=== PATIENT | male | born 1985 | race Caucasian/White ===

== ENCOUNTER 2025-06-14 13:14 | Emergency (ER) | payer MEDICAID ==
[~2025-06-14] VITALS: Ht 177.8 cm; Wt 82.0 kg
[2025-06-14 13:19] VITALS: O2SAT 94
[2025-06-14 13:45] VITALS: BP 117/60; PULSE 103; RESP 18; TEMP 37.2; O2SAT 98
[2025-06-27] MEDS ORDERED: METF-1150 MT (00:33)
[2025-06-27] MEDS ORDERED: FOLI0.4T6 MT (01:19)
[2025-06-27] MEDS ORDERED: GABA-529 MT (01:19)
[2025-06-27] MEDS ORDERED: SEMA2PEN (01:19)
[2025-06-28] MEDS ORDERED: PROT40 MT (18:38)
[2025-06-28] MEDS ORDERED: COR3 MT (18:38)
[2025-06-28] MEDS ORDERED: METF-817 MT (18:38)
[2025-06-28] MEDS ORDERED: GABA-529 MT (18:38)
== END 2025-06-14 15:35 | disposition left against medical advice (07) ==
LOC: ER 13:14
DX: R20.0 Anesthesia of skin (principal); R53.1 Weakness
CPT/HCPCS: 93005; 99281; 99283

== ENCOUNTER 2025-06-30 15:43 | Emergency (ER) | payer MEDICAID ==
[~2025-06-30] VITALS: Ht 172.7 cm; Wt 91.0 kg
[~2025-06-30 15:43] MED LIST: COR3 MT; FOLI0.4T6 MT; GABA-529 MT; METF-1150 MT; METF-817 MT; PROT40 MT; SEMA2PEN
[2025-06-30 15:50] VITALS: O2SAT 99
[2025-06-30] MEDS ORDERED: PANTOPRAZOLE SODIUM 40 MG/VIAL IV ONE (16:15)
[2025-06-30 16:40] LABS: BASOPHILS % 0.6 % (0.0-2.0); EOSINOPHILS % 2.4 % (0.0-5.0); HEMATOCRIT. 47.6 % (42.0-52.0); HEMOGLOBIN. 16.6 g/dL (14.0-18.0); LYMPHOCYTES % 24.4 % (20.0-50.0); MEAN PLATELET VOLUME 9.4 fl (7.4-10.4); MONOCYTES % 10.0 % (2.0-8.0); NEUTROPHILS % 62.6 % (40.0-76.0); PLATELET 76 x1000/uL (130-400); RED BLOOD CELL COUNT 5.15 mill/uL (4.7-6.1); RED CELL DISTRIBUTION WIDTH 13.3 % (11.6-14.6)
[2025-06-30 16:54] LABS: CREATININE 0.7 mg/dL (0.6-1.3); INR 1.2
[2025-06-30 16:55] LABS: UREA NITROGEN BLOOD < 5 mg/dL (9-23)
[2025-06-30 16:56] LABS: ASPARTATE AMINOTRANSFERASE 69 IU/L (<34); BILIRUBIN DIRECT 0.4 mg/dL (<=3.0)
[2025-06-30 16:57] LABS: BILIRUBIN TOTAL 1.3 mg/dL (0.1-1.0); PROTEIN TOTAL 7.8 g/dL (6.0-8.3)
[2025-06-30 17:00] LABS: CLARITY URINE CLEAR (CLEAR); COLOR URINE YELLOW (YELLOW); GLUCOSE URINE NEGATIVE (NEGATIVE); KETONES URINE NEGATIVE (NEGATIVE); LEUKOCYTE ESTERASE URINE NEGATIVE (NEGATIVE); NITRITE URINE NEGATIVE (NEGATIVE); OCCULT BLOOD URINE NEGATIVE (NEGATIVE); PH URINE 7.0 (4.5-8.0); PROTEIN URINE NEGATIVE (NEGATIVE); SPECIFIC GRAVITY URINE 1.005 (1.005-1.030); UROBILINOGEN URINE 2.0 E.U./dL (0.2-1.0)
[2025-06-30] MEDS: MORPHINE SULFATE 4 MG/ML INJ (FOR IV/IM USE) IV ONE (17:00)
[2025-06-30] MEDS: ONDANSETRON HCL 4MG/2ML INJ IV ONE (17:00)
[2025-06-30] MEDS: OCTREOTIDE ACETATE 50 MCG/ML 1ML IV ONE (17:02)
[2025-06-30] MEDS: PANTOPRAZOLE 80 MG in SODIUM CHLORIDE 0.9% 100 ML IV ONE (17:04)
[2025-06-30] MEDS: SODIUM CHLORIDE 0.9% 1,000 ML IV ONE (17:04)
[2025-06-30 17:26] LABS: *AMPHETAMINES SCREEN URINE NEGATIVE (NEGATIVE); *BARBITURATES SCREEN URINE NEGATIVE (NEGATIVE); *BENZODIAZEPINES SCREEN URINE PRESUMPTIVE POSITIVE (NEGATIVE)
[2025-06-30 17:27] LABS: *COCAINE SCREEN URINE NEGATIVE (NEGATIVE); CANNABINOID URINE SCREEN NEGATIVE (NEGATIVE); ECSTASY MDMA SCREEN URINE NEGATIVE (NEGATIVE); METHADONE URINE SCREEN NEGATIVE (NEGATIVE); OPIATES URINE SCREEN NEGATIVE (NEGATIVE); PHENCYCLIDINE URINE SCREEN NEGATIVE (NEGATIVE)
[2025-06-30] MEDS: SUCRALFATE 1G TABLET PO SCH (17:46)
[2025-06-30] MEDS: CHLORDIAZEPOXIDE 25MG CAPSULE PO ONE (17:47)
[2025-06-30] MEDS: MAGNESIUM/ALUMINUM HYDROXIDE/SIMETHICONE 30ML UDC PO ONE (17:47)
[2025-06-30 17:56] LABS: RBC URINE NONE SEEN /hpf (0-2); WBC URINE 0-2 /hpf (0-2)
[2025-06-30 17:59] LABS: BACTERIA URINE NONE SEEN; SQUAMOUS EPITHELIAL CELL URINE RARE /lpf (RARE/1+)
[2025-06-30 23:34] VITALS: BP 108/68; PULSE 70; RESP 16; TEMP 36.6; O2SAT 98
== END 2025-06-30 23:35 | disposition home or self-care (01) ==
LOC: ER 15:43 → CMPBEDREQ 07-01 07:34
DX: K29.70 Gastritis, unspecified, without bleeding (principal); F10.20 Alcohol dependence, uncomplicated; F41.9 Anxiety disorder, unspecified; E11.9 Type 2 diabetes mellitus without complications; Z88.5 Allergy status to narcotic agent; Z79.899 Other long term (current) drug therapy
CPT/HCPCS: 80076; 80305; 80048; 81003; 83690; 85014; 85018; 85025; 85610; 85730; 86850; 86900; 86901; 36415; 71045; 74176; 96361; 96365; 96375; 99285; G0480; J2354; J2405; J2470; J2270; J7050; J7030; Z7610 ×2; A6449; A4615; 80320; A4606